=== PATIENT | female | born 1955 | race Caucasian/White ===

== ENCOUNTER 2016-07-07 05:16 | Day surgery (SDC) | payer BC ==
[~2016-07-07 05:16] MED LIST: GLUCOPHAGE1000 MG PO; NOLV10 PO
[2016-07-11] MEDS ORDERED: ULTRAM50 PO (12:57)
== END 2016-07-07 08:02 | disposition home or self-care (01) ==
LOC: SDC 05:16
PROVIDERS: Orthopaedic Surgery
PROC: 3E0S3BZ Introduction of Anesthetic Agent into Epidural Space, Percutaneous Approach (ICD-10-PCS; 2016-07-07)
PROC: 3E0S33Z Introduction of Anti-inflammatory into Epidural Space, Percutaneous Approach (ICD-10-PCS; principal; 2016-07-07 07:30)
DX: M54.16 Radiculopathy, lumbar region (principal); E11.9 Type 2 diabetes mellitus without complications; Z79.899 Other long term (current) drug therapy; Z98.1 Arthrodesis status; Z90.49 Acquired absence of other specified parts of digestive tract; Z98.890 Other specified postprocedural states
CPT/HCPCS: 82962; J1040; J2250; J3010; Q9967

== ENCOUNTER 2016-07-21 05:03 | Day surgery (SDC) | payer BC ==
[~2016-07-21 05:03] MED LIST changes: +ULTRAM50 PO
== END 2016-07-21 09:58 | disposition home or self-care (01) ==
LOC: SDC 05:03
PROVIDERS: Orthopaedic Surgery
PROC: 3E0R3BZ Introduction of Anesthetic Agent into Spinal Canal, Percutaneous Approach (ICD-10-PCS; 2016-07-21)
PROC: 3E0R33Z Introduction of Anti-inflammatory into Spinal Canal, Percutaneous Approach (ICD-10-PCS; principal; 2016-07-21 07:15)
DX: M54.16 Radiculopathy, lumbar region (principal); E11.9 Type 2 diabetes mellitus without complications; Z98.890 Other specified postprocedural states
CPT/HCPCS: 82962; J1040; J2250; J3010; Q9967